=== PATIENT | male | born 1995 | race Two or more races ===

== ENCOUNTER 2019-04-08 10:20 | Emergency (ER) | payer BC ==
[2019-04-08] MEDS ORDERED: Lidocaine 1% 30 ML SDV INJECT ONE (10:55)
[2019-04-08] MEDS ORDERED: FLU Vacc QS2019-20(6MOS+)/PF 60 MCG/0.5 ML SYRINGE IM ONE (11:00)
--- NOTE | 2019-04-08 18:58 | OR ---
DATE OF OPERATION: 04/08/2019 SURGEON: Rudi Parks MD PREOPERATIVE DIAGNOSIS: Perianal abscess. POSTOPERATIVE DIAGNOSIS: Perirectal abscess. OPERATION PERFORMED: Incision and drainage of perirectal abscess. ANESTHESIA: 5 mL of 1% lidocaine without epinephrine. COMPLICATIONS: None. ESTIMATED BLOOD LOSS: Minimal. FINDINGS: I removed approximately 15 mL of [id number] purulent material from a deep pocket around the rectum. The incision was approximately 2 cm from the anal verge at the area of maximum fluctuance and tenderness. He had an instantaneous relief of pain and pressure following the procedure. INDICATION: Perirectal abscess. Mark was fully informed of the major risks, benefits, and alternatives. We did discuss the pathophysiology of the disease. 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 He expressed understanding. We also discussed the possibility of bleeding, infection, and further surgery. He gave informed consent of what was done. DESCRIPTION OF PROCEDURE: Mark was placed in the left lateral decubitus position. The buttocks were prepped and draped in the usual sterile fashion. Identified the area of maximum fluctuance, this was infused with local anesthesia. A #11 blade was used to open the area of maximum fluctuance. Approximately 1.5 cm incision was created. I got a rapid carrera of [id number] purulent material. Laxmi clamp was used to enter the deeper pocket around the rectum and a large amount of purulent material was evacuated. Thoroughly irrigated the space and removed some additional purulence. This was once again irrigated and no further purulence was identified. Sterile Laxmi clamp was then passed once again to ensure that the entirety of the pocket was empty and found no further purulence. A sterile dressing was applied after he was cleaned and dried. He had no complications and tolerated procedure well with minimal blood loss. MMODAL /[id number]
--- NOTE | 2019-04-08 19:18 | HP ---
DATE OF ADMISSION: 04/08/2019 CHIEF COMPLAINT: Perianal pain. HISTORY OF PRESENT ILLNESS: The patient is a 24-year-old male, a [email or web address] worker, who presented to the [facility] with perianal pain. He was sent over for concern for perianal abscess. He said his pain started about 5 days ago. He has been working every day, but the pain has become unbearable. He reports it is 7/10 in intensity. He denies any shaking chills, fever, nausea, vomiting, change in his bowel habits, bleeding per rectum, or drainage around the area. He has had 2 prior episodes neither requiring surgical drainage. They just simply drained on their own. PAST MEDICAL HISTORY: None. ALLERGIES TO MEDICATIONS: None. PAST SURGICAL HISTORY: None. FAMILY HISTORY: Unremarkable. PHYSICAL EXAMINATION: GENERAL: He is alert. He is in mild painful distress. VITAL SIGNS: Within normal limits. HEAD AND NECK: Normocephalic, atraumatic. LUNGS: Clear to auscultation bilaterally. HEART: Regular rate and rhythm. No clicks, murmurs, or rubs. ABDOMEN: Soft, nontender, and nondistended. RECTAL: Demonstrates a palpable fluctuant area on the left buttock just distal to the anoderm with some mild erythema at that location, exquisite tenderness is appreciated. Digital rectal exam in the rectum demonstrates some tenderness deeply in the perirectal space on the left. EXTREMITIES: No clubbing, cyanosis, or edema. No calf tenderness. ASSESSMENT: Perirectal abscess. PLAN: I have had a lengthy discussion with patient regarding the pathophysiology of his disease. I did explain to him that his fistula is already established and that definitive treatment would be surgical fistulotomy. This will not happen today. I simply need to create a space where the perirectal abscess can drain on its own. This would be considered an incision and drainage of perirectal abscess. He was fully informed of the major risks, benefits, and alternatives. The risks include but are not limited to recurrence of disease, bleeding, infection, further surgery, and perioperative and postoperative pain. He expressed understanding and gave informed consent for an incision and drainage of a perianal versus perirectal abscess. Please see my operative record for further details of that procedure. MMODAL /[id number]
== END 2019-04-08 13:20 ==
LOC: JD.ED 10:20
DX: K61.1 Rectal abscess (principal); Z23 Encounter for immunization
CPT/HCPCS: 46040; 90471; 90686; 99282; J2001; 10060; G0008